=== PATIENT | male | born 1960 | race Caucasian/White ===

== ENCOUNTER 2016-07-12 22:15 | Emergency (ER) | payer MEDICAID ==
[~2016-07-12] VITALS: Ht 180.3 cm; Wt 104.3 kg
[2016-07-12 22:20] VITALS: BP 131/99; PULSE 65; RESP 16; TEMP 98.7; O2SAT 97
[2016-07-13 01:07] VITALS: BP 130/85; PULSE 62; RESP 16; TEMP 98.7; O2SAT 97
== END 2016-07-13 01:07 | disposition home or self-care (01) ==
LOC: SED 22:15
DX: Z76.0 Encounter for issue of repeat prescription (principal); F32.9 Major depressive disorder, single episode, unspecified; F42.9 Obsessive-compulsive disorder, unspecified; Z98.890 Other specified postprocedural states
CPT/HCPCS: 99283

== ENCOUNTER 2019-12-24 14:40 | Emergency (ER) | payer MEDICAID ==
[~2019-12-24] VITALS: Ht 182.9 cm; Wt 83.9 kg
[2019-12-24 15:01] VITALS: BP_SYST 98
[2019-12-24] MEDS: ASPIRIN 81 MG TAB.CHEW PO ONE (15:20)
[2019-12-24 15:32] LABS: BASOPHILS % (AUTO) 0.6 % (0.0-2.0); EOSINOPHILS % (AUTO) 0.9 % (0.0-4.0); HEMATOCRIT 35.9 % (36-54); HEMOGLOBIN 12.2 g/dL (14.0-18.0); LYMPHOCYTES # (AUTO) 0.5 K/uL (1.0-5.5); MEAN CORPUSCULAR HEMOGLOBIN 32 pg (27-31); MEAN CORPUSCULAR HGB CONC 34 % (32-36); MEAN CORPUSCULAR VOLUME 95 fL (79.0-98.0); MONOCYTES # (AUTO) 0.3 K/uL (0.0-1.0); MONOCYTES % (AUTO) 6.4 % (1.7-9.3); NEUTROPHILS # (AUTO) 4.3 K/uL (1.8-7.7); NEUTROPHILS % (AUTO) 82.1 % (40.0-70.0); PLATELET COUNT (AUTO) 259 K/uL (130-430); RED BLOOD CELL COUNT(AUTO) 3.78 MIL/uL (4.2-6.2); RED CELL DISTRIBUTION WIDTH 13.7 % (9.0-15.0); WHITE BLOOD COUNT (AUTO) 5.2 K/uL (4.8-10.8)
[2019-12-24 15:39] LABS: CALCIUM 8.4 mg/dL (8.4-11.0); CREATININE 1.24 mg/dL (0.55-1.30); POTASSIUM 4.1 mmol/L (3.5-5.1)
[2019-12-24] MEDS: NACL 0.9% 1,000 ML IV ONE (15:43)
[2019-12-24] MEDS: MORPHINE 2 MG/ML INJ. SYRINGE IVP ONE ×2 (15:44→17:51)
[2019-12-24 15:46] LABS: ALBUMIN 3.5 g/dL (3.4-4.8); TOTAL BILIRUBIN 0.3 mg/dL (0.0-1.0)
[2019-12-24 16:00] LABS: INR 1.1 (0.80-1.20); PROTHROMBIN TIME 10.7 SECS (9.5-12.5)
[2019-12-24] MEDS: ONDANSETRON HCL 4 MG/2 ML VIAL IVP ONE (17:52)
[2019-12-24 18:28] LABS: BILIRUBIN,URINE NEGATIVE (NEGATIVE); BLOOD, URINE NEGATIVE (NEGATIVE); CLARITY/URINE CLEAR (CLEAR); GLUCOSE,URINE NEGATIVE (NEGATIVE); KETONES,URINE NEGATIVE (NEGATIVE); LEUKOCYTE ESTERASE ,URINE NEGATIVE (NEGATIVE); NITRITE, URINE NEGATIVE (NEGATIVE); PROTEIN URINE NEGATIVE (NEGATIVE); UROBILINOGEN,URINE 0.2 (0.2-1.0)
[2019-12-24 18:31] VITALS: BP_SYST 98
[2019-12-24 19:22] LABS: COLOR,URINE STRAW (YELLOW)
== END 2019-12-24 18:31 | disposition home or self-care (01) ==
LOC: SED 14:40
DX: F41.9 Anxiety disorder, unspecified (principal); R07.89 Other chest pain; E07.9 Disorder of thyroid, unspecified; I25.2 Old myocardial infarction; Z85.89 Personal history of malignant neoplasm of other organs and systems
CPT/HCPCS: 36415; 71045; 80053; 81003; 82550; 83880; 84484; 85025; 85610; 85730; 93005; 96374; 96375; 96376; 99285; J2270; J2405; J7030